=== PATIENT | male | born 1975 | race Caucasian/White ===

== ENCOUNTER 2021-10-29 01:50 | Emergency (ER) | payer SELFPAY | END 2021-10-29 02:15 | disposition left against medical advice (07) | LOC: DL.ED 01:50 | DX: Z53.21 Procedure and treatment not carried out due to patient leaving prior to being seen by health care provider (principal) ==

== ENCOUNTER 2022-07-20 11:21 | Emergency (ER) | payer MEDICAID ==
[2022-07-20 12:46] VITALS: BP 126/88; PULSE 135
[2022-07-20] MEDS ORDERED: Acetaminophen 500 MG Tab PO ONE (13:27)
[2022-07-20] MEDS ORDERED: MVI, Adult with Vitamin K 10 ML, Thiamine 100 MG, Folic Acid 1 MG in Lactated Ringers 1... IV ONE ×4 (13:29)
[2022-07-20 15:30] LABS: ANION GAP 11.8 mEq/L (7-13)
== END 2022-07-20 15:30 ==
LOC: DL.ED 11:21
DX: S06.329A Contusion and laceration of left cerebrum with loss of consciousness of unspecified duration, initial encounter (principal); S02.32XA Fracture of orbital floor, left side, initial encounter for closed fracture; S12.490A Other displaced fracture of fifth cervical vertebra, initial encounter for closed fracture; S13.161A Dislocation of C5/C6 cervical vertebrae, initial encounter; S01.112A Laceration without foreign body of left eyelid and periocular area, initial encounter; F17.210 Nicotine dependence, cigarettes, uncomplicated; Z20.822 Contact with and (suspected) exposure to COVID-19; Y04.0XXA Assault by unarmed brawl or fight, initial encounter
CPT/HCPCS: 36415; 70450; 70486; 72125; 80053; 80307; 82140; 82150; 83605; 83690; 83735; 84484; 85025; 87635; 96365; 99285; A9270; J3411; J7120; J3490; U0002

== ENCOUNTER 2023-01-15 11:31 | Emergency (ER) | payer MEDICAID ==
[2023-01-15] MEDS ORDERED: Acetaminophen/HYDROcodone 325-5 MG Tab PO ONE (11:32)
[2023-01-15 12:09] VITALS: BP 102/76; PULSE 121
[2023-01-15] MEDS ORDERED: Sodium Chloride 0.9% 1,000 ML IV ONE (12:20)
[2023-01-15] MEDS ORDERED: Iopamidol 612 MG/ML 100 ML Bottle IVPUSH ONE (12:50)
[2023-01-15 13:00] LABS: ANION GAP 15.1 mEq/L (7-13)
[2023-01-15] MEDS ORDERED: Acetaminophen/HYDROcodone 325-5 MG Tab ONE (13:41)
== END 2023-01-15 13:51 | disposition home or self-care (01) ==
LOC: DL.ED 11:31
DX: S22.42XA Multiple fractures of ribs, left side, initial encounter for closed fracture (principal); S00.03XA Contusion of scalp, initial encounter; F10.920 Alcohol use, unspecified with intoxication, uncomplicated; Y90.7 Blood alcohol level of 200-239 mg/100 ml; Y04.0XXA Assault by unarmed brawl or fight, initial encounter; Y92.009 Unspecified place in unspecified non-institutional (private) residence as the place of occurrence of the external cause
CPT/HCPCS: 36415; 70450; 71260; 72125; 74177; 80053; 80307; 82150; 83690; 85025; 96360; 99284; 99284-25; A9270-GY; J7030; Q9967

== ENCOUNTER 2024-09-01 01:11 | Emergency (ER) | payer MEDICAID ==
[2024-09-01 01:43] VITALS: BP 136/95; PULSE 101
== END 2024-09-01 02:25 | disposition home or self-care (01) ==
LOC: DL.ED 01:11
DX: H11.31 Conjunctival hemorrhage, right eye (principal); I10 Essential (primary) hypertension; F17.210 Nicotine dependence, cigarettes, uncomplicated
CPT/HCPCS: 99283

== ENCOUNTER 2024-12-26 09:14 | Emergency (ER) | payer MEDICAID ==
[2024-12-26] MEDS: Iopamidol 612 MG/ML 100 ML Bottle IVPUSH ONE (09:50)
[2024-12-26 10:08] LABS: BASOPHILS PERCENT AUTO 0.6 % (0.0-1.0); EOSINOPHILS PERCENT AUTO 0.5 % (1.0-3.0); HEMATOCRIT 46.4 % (40.0-54.0); HEMOGLOBIN 15.6 g/dL (14.0-18.0); MEAN CORPUSCULAR HEMOGLOBIN 30.9 pg (27.0-34.0); MEAN CORPUSCULAR HGB CONC 33.6 g/dL (33.0-35.0); MEAN CORPUSCULAR VOLUME 91.9 fL (80-100); MONOCYTES PERCENT AUTO 12.1 % (2-8); NEUTROPHILS PERCENT AUTO 62.8 % (42.2-75.2); PLATELET COUNT,PLT 143 10^3/uL (150-450); RED BLOOD CELL COUNT 5.05 10^6/uL (4.6-6.2); WHITE BLOOD CELL COUNT,WBC 11.3 10^3/uL (5.0-10.0)
[2024-12-26] MEDS: MVI, Adult with Vitamin K 10 ML, Folic Acid 1 MG, Thiamine 100 MG in Lactated Ringers 1... IV ONE (10:08)
[2024-12-26 10:20] LABS: INR 1.1 (0.9-1.2); PROTHROMBIN TIME 11.3 SEC (9.0-12.0)
[2024-12-26 10:36] LABS: A/G RATIO 0.9; ALBUMIN 3.4 g/dL (3.4-5.0); ANION GAP 12.9 mEq/L (7-13); BILIRUBIN TOTAL 0.4 mg/dL (0.2-1.0); BUN/CREATININE RATIO 13.3 (No establ ref range); CALCIUM 8.2 mg/dL (8.5-10.1); CREATININE 0.75 mg/dL (0.70-1.30); EST CRCL DRUG DOSING (CG) 117.8 mL/min; MAGNESIUM 1.9 mg/dL (1.8-2.4); POTASSIUM,K 3.9 mmol/L (3.5-5.1); PROTEIN TOTAL,TP 7.3 g/dL (6.4-8.2)
[2024-12-26 11:06] LABS: AMPHETAMINES,URINE NEGATIVE (NEGATIVE); BARBITURATES,URINE NEGATIVE (NEGATIVE); BENZODIAZEPINE,URINE NEGATIVE (NEGATIVE); MDMA (ECSTASY), URINE NEGATIVE (NEGATIVE); METHADONE,URINE NEGATIVE (NEGATIVE); METHAMPHETAMINES,URINE NEGATIVE (NEGATIVE); OPIATES,URINE NEGATIVE (NEGATIVE); OXYCODONE,URINE NEGATIVE (NEGATIVE); PHENCYCLIDINE,URINE NEGATIVE (NEGATIVE); TCA,URINE NEGATIVE (NEGATIVE)
[2024-12-26 11:07] LABS: APPEARANCE,URINE CLEAR (CLEAR); BILIRUBIN,URINE NEGATIVE (NEGATIVE); COLOR,URINE YELLOW (YELLOW); GLUCOSE,URINE 500 (NEGATIVE); KETONES,URINE NEGATIVE (NEGATIVE); LEUKOCYTE ESTERASE,URINE NEGATIVE (NEGATIVE); NITRITE,URINE NEGATIVE (NEGATIVE); OCCULT BLOOD,URINE TRACE-INTACT (NEGATIVE); PROTEIN,URINE NEGATIVE (NEGATIVE); UROBILINOGEN,URINE 0.2 mg/dL (0.2-1.0)
[2024-12-26 11:23] LABS: BACTERIA,URINE RARE /HPF (0-FEW/HPF); EPITHELIAL CELLS,URINE NOT SEEN /HPF (NOT SEEN); RBC,URINE 0-5 /HPF (0-5); WBC,URINE NOT SEEN /HPF (0-5/HPF)
[2024-12-26 11:47] VITALS: BP 115/75; PULSE 99
== END 2024-12-26 11:57 | disposition left against medical advice (07) ==
LOC: DL.ED 09:14
DX: S02.2XXA Fracture of nasal bones, initial encounter for closed fracture (principal); F10.120 Alcohol abuse with intoxication, uncomplicated; E86.9 Volume depletion, unspecified; R73.9 Hyperglycemia, unspecified; I10 Essential (primary) hypertension; F17.210 Nicotine dependence, cigarettes, uncomplicated; Y90.7 Blood alcohol level of 200-239 mg/100 ml; Y04.8XXA Assault by other bodily force, initial encounter
CPT/HCPCS: 36415; 70450; 70486; 71260; 72125; 74177; 80053; 80305; 80307; 81001; 83735; 84484; 85025; 85610; 93005; 96365; 99284; J3411; J7120; Q9967; J3490

== ENCOUNTER 2024-12-26 15:08 | Observation (INO) | payer MEDICAID ==
[2024-12-26] MEDS ORDERED: Albuterol/Ipratropium 3.0-0.5 MG/3 ML Neb Soln NEB PRN (16:08)
[2024-12-26] MEDS ORDERED: Bisacodyl 5 MG Tab PO PRN (16:08)
[2024-12-26] MEDS ORDERED: Ondansetron 4 MG/2 ML SDV IVPUSH PRN (16:08)
[2024-12-26] MEDS ORDERED: Polyethylene Glycol 3350 Powder 17 GM Packet PO PRN (16:08)
[2024-12-26] MEDS ORDERED: Magnesium Hydroxide 400 MG/5 ML Susp 30 ML Cup PO PRN (16:08)
[2024-12-26] MEDS ORDERED: Acetaminophen 325 MG Tab PO PRN (16:08)
[2024-12-26] MEDS ORDERED: Naloxone 2 MG/2 ML Syringe IVPUSH PRN (16:08)
[2024-12-26] MEDS ORDERED: HYDROmorphone 0.5 MG/0.5 ML Syringe IVPUSH PRN (16:08)
[2024-12-26] MEDS ORDERED: Flumazenil 0.1 MG/ML 5 ML MDV IVPUSH PRN (16:19)
[2024-12-26] MEDS: MVI, Adult with Vitamin K 10 ML, Folic Acid 1 MG, Thiamine 100 MG in Lactated Ringers 1... IV ONE (16:30)
[2024-12-26] MEDS: Thiamine 100 MG in Sodium Chloride 0.9% 100 ML IV ONE (16:30)
[2024-12-26] MEDS: Acetaminophen/HYDROcodone 325-10 MG Tab PO PRN (17:43)
[2024-12-26] MEDS: MVI, Adult with Vitamin K 10 ML, Folic Acid 1 MG, Thiamine 200 MG in Lactated Ringers 1... IV ONE (18:03)
[2024-12-26] MEDS: Pantoprazole 40 MG Vial IVPUSH ONE (18:04)
[2024-12-26] MEDS: Nicotine 21 MG/24 Hr Patch TRDERM SCH (20:16)
[2024-12-26] MEDS: Ketorolac 30 MG/ML SDV IVPUSH SCH (20:17)
[2024-12-26] MEDS: HYDROmorphone 1 MG/ML Syringe IVPUSH PRN (20:19)
[2024-12-26] MEDS ORDERED: oxyCODONE ER 10 MG TAB.ER PO SCH (21:00)
[2024-12-27] MEDS: Pantoprazole 40 MG Vial IVPUSH SCH (05:19)
[2024-12-27 06:09] LABS: BASOPHILS PERCENT AUTO 0.8 % (0.0-1.0); EOSINOPHILS PERCENT AUTO 3.4 % (1.0-3.0); HEMATOCRIT 42.4 % (40.0-54.0); HEMOGLOBIN 14.2 g/dL (14.0-18.0); LYMPHOCYTES PERCENT AUTO 38.7 % (20.5-50.1); MEAN CORPUSCULAR HEMOGLOBIN 31.3 pg (27.0-34.0); MEAN CORPUSCULAR HGB CONC 33.5 g/dL (33.0-35.0); MEAN CORPUSCULAR VOLUME 93.4 fL (80-100); MONOCYTES PERCENT AUTO 15.8 % (2-8); NEUTROPHILS PERCENT AUTO 41.3 % (42.2-75.2); PLATELET COUNT,PLT 108 10^3/uL (150-450); RED BLOOD CELL COUNT 4.54 10^6/uL (4.6-6.2); WHITE BLOOD CELL COUNT,WBC 6.1 10^3/uL (5.0-10.0)
[2024-12-27 06:27] LABS: ANION GAP 9.9 mEq/L (7-13); BILIRUBIN TOTAL 0.8 mg/dL (0.2-1.0); CALCIUM 8.1 mg/dL (8.5-10.1); CREATININE 0.63 mg/dL (0.70-1.30); EST CRCL DRUG DOSING (CG) 140.24 mL/min; MAGNESIUM 1.7 mg/dL (1.8-2.4); POTASSIUM,K 3.9 mmol/L (3.5-5.1); PROTEIN TOTAL,TP 6.4 g/dL (6.4-8.2)
[2024-12-27 06:33] LABS: A/G RATIO 0.88
[2024-12-27] MEDS: oxyCODONE ER 10 MG TAB.ER PO SCH (08:33)
[2024-12-27] MEDS: Metoprolol Succinate 25 MG Tab.ER PO SCH (09:48)
[2024-12-27] MEDS: Magnesium Sulf/Wat 2 GM/50 mL 2 GM in Premix Bag 1 BAG IV ONE (09:52)
[2024-12-27] MEDS: FLU (Flulaval Triv) 24-25(6MOS UP)/PF 45 MCG/0.5 ML Syringe IM ONE (10:09)
[2024-12-27] MEDS ORDERED: Sodium Chloride 0.9% 10 ML Syringe FLUSH PRN (10:51)
[2024-12-27] MEDS: Gabapentin 300 MG Cap PO SCH (12:30)
[2024-12-27] MEDS: Multivitamins with Iron/Calcium/Folic Acid/Minerals Tab PO SCH (20:23)
[2024-12-27] MEDS: Thiamine 100 MG Tab PO SCH (20:23)
[2024-12-27] MEDS: Folic Acid 1 MG Tab PO SCH (20:23)
[2024-12-27] MEDS: Check NICOTINE Patch TRDERM SCH (20:28)
[2024-12-28 06:10] LABS: BASOPHILS PERCENT AUTO 0.3 % (0.0-1.0); EOSINOPHILS PERCENT AUTO 3.9 % (1.0-3.0); HEMATOCRIT 43.7 % (40.0-54.0); HEMOGLOBIN 14.5 g/dL (14.0-18.0); LYMPHOCYTES PERCENT AUTO 30.2 % (20.5-50.1); MEAN CORPUSCULAR HEMOGLOBIN 30.8 pg (27.0-34.0); MEAN CORPUSCULAR HGB CONC 33.2 g/dL (33.0-35.0); MEAN CORPUSCULAR VOLUME 92.8 fL (80-100); MONOCYTES PERCENT AUTO 12.6 % (2-8); PLATELET COUNT,PLT 101 10^3/uL (150-450); RED BLOOD CELL COUNT 4.71 10^6/uL (4.6-6.2); WHITE BLOOD CELL COUNT,WBC 6.1 10^3/uL (5.0-10.0)
[2024-12-28 06:34] LABS: ALBUMIN 2.9 g/dL (3.4-5.0); ANION GAP 10.2 mEq/L (7-13); BILIRUBIN TOTAL 1.2 mg/dL (0.2-1.0); BUN/CREATININE RATIO 14.3 (No establ ref range); CALCIUM 8.3 mg/dL (8.5-10.1); CREATININE 0.84 mg/dL (0.70-1.30); EST CRCL DRUG DOSING (CG) 105.18 mL/min; MAGNESIUM 1.8 mg/dL (1.8-2.4); POTASSIUM,K 4.2 mmol/L (3.5-5.1); PROTEIN TOTAL,TP 6.7 g/dL (6.4-8.2)
[2024-12-28 06:46] LABS: A/G RATIO 0.76
[2024-12-28] MEDS: Lisinopril 20 MG Tab PO SCH (09:42)
[2024-12-28] MEDS: amLODIPine 5 MG Tab PO SCH (09:43)
[2024-12-28 16:26] VITALS: BP 129/74; PULSE 85
[2024-12-29 06:19] LABS: BASOPHILS PERCENT AUTO 0.3 % (0.0-1.0); HEMATOCRIT 44.2 % (40.0-54.0); HEMOGLOBIN 14.8 g/dL (14.0-18.0); LYMPHOCYTES PERCENT AUTO 29.3 % (20.5-50.1); MEAN CORPUSCULAR HEMOGLOBIN 30.8 pg (27.0-34.0); MEAN CORPUSCULAR HGB CONC 33.5 g/dL (33.0-35.0); MEAN CORPUSCULAR VOLUME 92.1 fL (80-100); NEUTROPHILS PERCENT AUTO 55.4 % (42.2-75.2); PLATELET COUNT,PLT 123 10^3/uL (150-450); WHITE BLOOD CELL COUNT,WBC 8.8 10^3/uL (5.0-10.0)
[2024-12-29 06:47] LABS: ALBUMIN 3.1 g/dL (3.4-5.0); ANION GAP 11.8 mEq/L (7-13); BILIRUBIN TOTAL 0.8 mg/dL (0.2-1.0); BUN/CREATININE RATIO 17.6 (No establ ref range); CALCIUM 8.5 mg/dL (8.5-10.1); CREATININE 0.74 mg/dL (0.70-1.30); EST CRCL DRUG DOSING (CG) 119.39 mL/min; MAGNESIUM 1.8 mg/dL (1.8-2.4); POTASSIUM,K 3.8 mmol/L (3.5-5.1); PROTEIN TOTAL,TP 7.1 g/dL (6.4-8.2)
[2024-12-29 06:51] LABS: A/G RATIO 0.78
[2024-12-29] MEDS ORDERED: Gabapentin 300 MG Cap PO SCH (09:00)
== END 2024-12-29 06:51 | disposition left against medical advice (07) ==
LOC: DL.ED 15:08 → DL.MS 15:57 → UNDOADMOB 15:57 → DL.ED 16:22
PROVIDERS: ADMIT Internal Medicine; ATTEND Internal Medicine
DX: S02.2XXA Fracture of nasal bones, initial encounter for closed fracture (principal); S02.92XA Unspecified fracture of facial bones, initial encounter for closed fracture; R73.9 Hyperglycemia, unspecified; I10 Essential (primary) hypertension; F17.200 Nicotine dependence, unspecified, uncomplicated; Z79.899 Other long term (current) drug therapy; Y09 Assault by unspecified means
CPT/HCPCS: 36415; 80053; 82550; 83735; 85025; 90656; 99285; A9270; J1171; J1885; J2060; J2470; J3360; J3411; J3475; J7120; 96365; 96366; 96367; 96368; 96375; 96376; G0378; J3490

== ENCOUNTER 2025-05-22 14:28 | Emergency (ER) | payer MEDICAID ==
[2025-05-22 14:40] VITALS: BP 160/75; PULSE 80
== END 2025-05-22 15:35 | disposition home or self-care (01) ==
LOC: DL.ED 14:28
DX: S90.31XA Contusion of right foot, initial encounter (principal); I10 Essential (primary) hypertension; F17.210 Nicotine dependence, cigarettes, uncomplicated; Z79.899 Other long term (current) drug therapy; X50.1XXA Overexertion from prolonged static or awkward postures, initial encounter; Y93.89 Activity, other specified
CPT/HCPCS: 73590-RT; 73630-RT; 99283

== ENCOUNTER 2025-08-08 12:42 | Emergency (ER) | payer MEDICAID ==
[2025-08-08 13:10] VITALS: BP 140/79; PULSE 84
== END 2025-08-08 13:06 | disposition home or self-care (01) ==
LOC: DL.ED 12:42
DX: S70.12XA Contusion of left thigh, initial encounter (principal); S70.11XA Contusion of right thigh, initial encounter; I10 Essential (primary) hypertension; K21.9 Gastro-esophageal reflux disease without esophagitis; Z79.899 Other long term (current) drug therapy; Z13.9 Encounter for screening, unspecified; X58.XXXA Exposure to other specified factors, initial encounter; Y93.89 Activity, other specified
CPT/HCPCS: 99283

== ENCOUNTER 2025-09-05 17:06 | Emergency (ER) | payer MEDICAID ==
[2025-09-05] MEDS ORDERED: Sodium Chloride 0.9% 10 ML Syringe FLUSH PRN (17:09)
[2025-09-05 17:23] LABS: PLATELET COUNT,PLT 125 10^3/uL (150-450); RED BLOOD CELL COUNT 2.73 10^6/uL (4.6-6.2); WHITE BLOOD CELL COUNT,WBC 17.6 10^3/uL (5.0-10.0)
[2025-09-05 17:26] LABS: BASOPHILS PERCENT AUTO 0.1 % (0.0-1.0); EOSINOPHILS PERCENT AUTO 0.0 % (1.0-3.0); LYMPHOCYTES PERCENT AUTO 8.6 % (20.5-50.1); MONOCYTES PERCENT AUTO 12.4 % (2-8); NEUTROPHILS PERCENT AUTO 78.9 % (42.2-75.2)
[2025-09-05 17:35] LABS: B-TYPE NATRIURETIC PEPTIDE,BNP 16 pg/ml (0-100); INR 2.4 (0.9-1.2); PTT,PARTIAL THROMBOPLSTIN TIME 27.2 SEC (22.0-34.0)
[2025-09-05 17:39] LABS: A/G RATIO 0.43; ALANINE AMINOTRANSFERASE,ALT 64 U/L (16-63); ASPARTATE AMNIOTRANSFERASE,AST 146 U/L (15-37); BILIRUBIN TOTAL 4.6 mg/dL (0.2-1.0); BLOOD UREA NITROGEN,BUN 33 mg/dL (7-18); CARBON DIOXIDE,CO2 23 mmol/L (21-32); CHLORIDE,CL 100 mmol/L (98-107); CREATINE KINASE,CK 58 U/L (39-308); CREATININE 1.64 mg/dL (0.70-1.30); GLUCOSE RANDOM 131 mg/dL (70-99); PHOSPHORUS 4.5 mg/dL (2.6-4.7); POTASSIUM,K 5.3 mmol/L (3.5-5.1); PROTEIN TOTAL,TP 6.0 g/dL (6.4-8.2); SODIUM,NA 141 mmol/L (136-145)
[2025-09-05 17:40] LABS: ESTIMATED GFR 51 mL/min (>=60); ETHANOL BLOOD MEDICAL < 3 mg/dL (0)
[2025-09-05 17:41] LABS: LYMPHOCYTES PERCENT MAN 3 % (20-50); MONOCYTES PERCENT MAN 9 % (2-8); SEG NEUTROPHILS PERCENT MAN 88 % (42-75)
[2025-09-05] MEDS: Octreotide 100 MCG/ML SDV SUBCUT ONE (17:41)
[2025-09-05 17:47] LABS: LACTIC ACID 12.7 mmol/L (0.4-2.0)
[2025-09-05] MEDS: Iopamidol 612 MG/ML 100 ML Bottle IVPUSH ONE (17:48)
[2025-09-05] MEDS: Octreotide 100 MCG in Sodium Chloride 0.9% 99 ML IV SCH (17:58)
[2025-09-05] MEDS ORDERED: Norepinephrine Bit/D5W Premix 4 MG/250 ML BAG ONE (18:45)
[2025-09-05] MEDS ORDERED: Benzocaine 20% Topical Spray UD MUCMEM ONE (18:46)
[2025-09-05] MEDS: Lidocaine 2% Jelly 10 ML Urojet MUCMEM ONE (19:48)
[2025-09-05 20:16] VITALS: BP 124/69; PULSE 130
[2025-09-05] MEDS: Lidocaine 2% Jelly 10 ML Urojet ONE (20:26)
== END 2025-09-05 20:18 ==
LOC: DL.ED 17:06
DX: K92.2 Gastrointestinal hemorrhage, unspecified (principal); K70.40 Alcoholic hepatic failure without coma; Y90.1 Blood alcohol level of 20-39 mg/100 ml; I10 Essential (primary) hypertension; K21.9 Gastro-esophageal reflux disease without esophagitis; F17.200 Nicotine dependence, unspecified, uncomplicated; Z79.899 Other long term (current) drug therapy
CPT/HCPCS: 36415; 36430; 51702; 71045; 74177; 80053; 80307; 82272; 82550; 83605; 83690; 83735; 83880; 84100; 84145; 84484; 85025; 85610; 85730; 86140; 86850; 86900; 86901; 86920; 86922; 87040; 93005; 93010; 96365; 96366; 96368; 96372; 96375; 96376; 99285; 99285-25; A9270-GY; J2354-JA; J2354-JB-GY; J2470; J2543; J2765; J3360; J7030; P9016; Q9967